=== PATIENT | female | born 1945 | race Caucasian/White ===

== ENCOUNTER 2019-09-21 15:05 | Inpatient (IN) | payer MEDICARE ==
[~2019-09-21] VITALS: Ht 167.6 cm; Wt 53.2 kg
[2019-09-21] MEDS ORDERED: IOHEXOL-350 50ML VIAL IV ONE (15:09)
[2019-09-21] MEDS ORDERED: LIDOCAINE HCL 2% 20ML ONE (15:09)
[2019-09-21] MEDS ORDERED: DOPAMINE HCL 400 MG/D5%-WATER 0 ML IV ONE (15:09)
[2019-09-21] MEDS ORDERED: LIDOCAINE PF 2% 5ML ABBOJECT ONE (15:09)
[2019-09-21] MEDS ORDERED: BIVALIRUDIN 250 MG/VIAL IV ONE (15:09)
[2019-09-21] MEDS ORDERED: ATROPINE SULFATE 0.1 MG/ML 10 ML SYG IVP ONE (15:09)
[2019-09-21] MEDS ORDERED: IOHEXOL 350 MG/ML 100ML INFUS..BTL IV ONE (15:09)
[2019-09-21] MEDS ORDERED: NITROGLYCERIN 2 MG/VIAL VIAL IV ONE (15:09)
[2019-09-21] MEDS ORDERED: METOPROLOL TARTRATE 1 MG/ML 5ML VIAL IV ONE (15:28)
[2019-09-21] MEDS ORDERED: CEFTRIAXONE SODIUM 2 GM VIAL ONE (16:40)
[2019-09-21] MEDS ORDERED: SODIUM CHLORIDE 0.9% 50 ML IV ONE (16:41)
[2019-09-21] MEDS ORDERED: AZITHROMYCIN 500MG+NS 250ML 250 ML IV ONE (17:10)
[2019-09-21] MEDS ORDERED: NITROGLYCERIN 0.4 MG SL TAB SL PRN (17:15)
[2019-09-21] MEDS ORDERED: MORPHINE SULFATE 2 MG/ML 1ML SYG IVP PRN (17:15)
[2019-09-21] MEDS: AZITHROMYCIN 500MG+NS 250ML 250 ML IV SCH (17:15)
[2019-09-21] MEDS: CEFTRIAXONE SODIUM 1 GM IVP SCH (17:15)
[2019-09-21] MEDS ORDERED: ACETAMINOPHEN 325 MG TAB PO PRN ×2 (17:30)
[2019-09-21] MEDS ORDERED: ONDANSETRON HCL 4 MG/2 ML VIAL IVP PRN (17:30)
[2019-09-21] MEDS: LACTATED RINGERS 1000ML 1,000 ML IV SCH (18:15)
[2019-09-21] MEDS ORDERED: ASPIRIN 300 MG SUPPOSITORY PR SCH (20:00)
[2019-09-21] MEDS ORDERED: ASPIRIN 325 MG TABLET ONE (20:07)
[2019-09-21] MEDS ORDERED: ENOXAPARIN SODIUM 100 MG/1 ML SQ ONE (20:07)
[2019-09-21] MEDS: ENOXAPARIN SODIUM 60 MG/0.6 ML SQ SCH (21:00)
[2019-09-21] MEDS: METOPROLOL TARTRATE 25 MG TAB PO SCH (21:00)
[2019-09-21] MEDS ORDERED: HEPARIN 25000 UNITS/250 ML D5W 250 ML IV SCH (21:30)
[2019-09-21] MEDS ORDERED: SIMVASTATIN 10 MG TABLET ONE (22:05)
[2019-09-21] MEDS ORDERED: FAMOTIDINE/PF 20 MG/2 ML VIAL IV ONE (22:05)
[2019-09-21] MEDS ORDERED: LACTATED RINGERS 1000ML 1,000 ML IV ONE (22:05)
[2019-09-22] MEDS ORDERED: METOPROLOL TARTRATE 25 MG TAB ONE ×2 (03:28→15:11)
[2019-09-22] MEDS: ASPIRIN 81MG TAB.CHEW PO SCH (09:00)
[2019-09-22] MEDS: FAMOTIDINE/PF 20 MG/2 ML VIAL IV SCH (09:00)
[2019-09-22] MEDS: METOPROLOL TARTRATE 25 MG TAB PO SCH ×2 (09:00→21:00)
[2019-09-22] MEDS: ENOXAPARIN SODIUM 60 MG/0.6 ML SQ SCH ×2 (09:00→21:00)
[2019-09-22] MEDS ORDERED: ENOXAPARIN SODIUM 30 MG/0.3 ML SQ SCH (09:00)
[2019-09-22] MEDS ORDERED: ENOXAPARIN SODIUM 60 MG/0.6 ML SQ ONE (09:09)
[2019-09-22] MEDS ORDERED: FAMOTIDINE/PF 20 MG/2 ML VIAL IV ONE ×2 (09:09→22:32)
[2019-09-22] MEDS ORDERED: LACTATED RINGERS 1000ML 1,000 ML IV ONE (09:13)
[2019-09-22] MEDS ORDERED: LORAZEPAM 2 MG/ML 1 ML VIAL ONE (11:16)
[2019-09-22] MEDS: LACTATED RINGERS 1000ML 1,000 ML IV SCH (14:15)
--- NOTE | 2019-09-22 14:56 | NUR ---
DCP: HOME TO [facility] spoke to pt's daughter Hanna De La Torre [phone]. Per daughter, family had come down for vacation at [facility] when pt became ill. Prior to this, pt was independent, active, no DME or in home care services. PCP is Dr Morris [phone] or [phone]. Plan is home to [place] when able. Addendum: 09/22/19 at 1459 by BIJU PHILLIP Amended: Links added.
[2019-09-22] MEDS ORDERED: AZITHROMYCIN 500MG+NS 250ML 250 ML IV ONE (15:11)
[2019-09-22] MEDS ORDERED: CEFTRIAXONE SODIUM 1 GM ONE (15:59)
[2019-09-22] MEDS ORDERED: SODIUM CHLORIDE 0.9% 50 ML IV ONE (16:00)
[2019-09-22] MEDS: AZITHROMYCIN 500MG+NS 250ML 250 ML IV SCH (17:15)
[2019-09-22] MEDS: CEFTRIAXONE SODIUM 1 GM IVP SCH (17:15)
[2019-09-22] MEDS ORDERED: ASPIRIN 81MG TAB.CHEW ONE (22:31)
[2019-09-22] MEDS ORDERED: SIMVASTATIN 10 MG TABLET ONE (22:32)
[2019-09-23] VITALS (9 sets, daily range): BP systolic 78–148; BP diastolic 40–86; PULSE 79–101; RESP 18–22; TEMP 98.2–98.8
[2019-09-23] MEDS: ALPRAZOLAM 0.25 MG TABLET PO PRN (08:01)
[2019-09-23] MEDS: ENOXAPARIN SODIUM 60 MG/0.6 ML SQ SCH ×2 (08:03→21:20)
[2019-09-23] MEDS: METOPROLOL TARTRATE 25 MG TAB PO SCH (08:04)
[2019-09-23] MEDS: ASPIRIN 81MG TAB.CHEW PO SCH (08:04)
[2019-09-23] MEDS: FAMOTIDINE/PF 20 MG/2 ML VIAL IV SCH (09:00)
--- NOTE | 2019-09-23 13:30 | NUR ---
Called lab for covid results. Covid swab was collected on 09/22 results still pending. Per lab should come back today or 09/23. Attempted to call MD with update of covid test and no answer.
--- NOTE | 2019-09-23 16:18 | NUR ---
Covid test negative. Informed primary MD of negative results and was given order for RT home oxygen evaluation. Order entered. Per MD if pt does need home oxygen put in order for case management to arrange for home oxygen.
[2019-09-23] MEDS: AZITHROMYCIN 500MG+NS 250ML 250 ML IV SCH (17:21)
[2019-09-23] MEDS: CEFTRIAXONE SODIUM 1 GM IVP SCH (17:21)
--- NOTE | 2019-09-23 18:14 | NUR ---
Unknown reason as to why this patient has a rodrigues. Will f/u with Addendum: 09/23/19 at 1816 by SHIRIN SHELBY RN RN Amended: Links added.
[2019-09-23] MEDS ORDERED: METHYLPREDNISOLONE SOD SUCC 40MG/ML 1ML IVP SCH (21:00)
[2019-09-23] MEDS: METOPROLOL SUCCINATE 50 MG TAB.SR.24H PO SCH (21:15)
[2019-09-24] VITALS (9 sets, daily range): BP systolic 109–159; BP diastolic 51–87; PULSE 44–89; RESP 18–22; TEMP 97.3–98.8
--- NOTE | 2019-09-24 07:30 | NUR ---
Upon entering room. Pt reports he was in the bathroom, and patient got up out of the bed. There was BM on the floor, patient, and the bed. assisted cleaning the patient. Pt was put in the shower with assistance of . Changed the bedding. Placed bed alarm on. Pt tolerated well.
[2019-09-24] MEDS ORDERED: DEXAMETHASONE SOD PHOSPHATE 4 MG/ML 1ML VIAL IVP SCH (09:00)
[2019-09-24] MEDS: LOSARTAN 50 MG TABLET PO SCH (10:34)
[2019-09-24] MEDS: POTASSIUM CHLORIDE 20 MEQ ERTAB PO SCH (10:35)
[2019-09-24] MEDS: ASPIRIN 81MG TAB.CHEW PO SCH (10:35)
[2019-09-24] MEDS: ENOXAPARIN SODIUM 60 MG/0.6 ML SQ SCH ×2 (10:35→21:03)
[2019-09-24] MEDS: FAMOTIDINE/PF 20 MG/2 ML VIAL IV SCH (10:35)
--- NOTE | 2019-09-24 11:19 | NUR ---
Called Dr. Hobbs cardiology workers compensation paralegal at [phone] to inform pt family inquiring about [facility] for discharge. did not answer and voicemail not set up. Will return call.
--- NOTE | 2019-09-24 11:35 | NUR ---
Removed rodrigues. Removed 8cc out of balloon. Pt. tolerated well. No s/s of distress noted. Will monitor for post void
--- NOTE | 2019-09-24 12:30 | NUR ---
Pt assisted patient to bathroom. Informed pt voided and had a BM. Unable to get obtain the amount of urine voided. Will continue to monitor.
[2019-09-24] MEDS ORDERED: HALOPERIDOL DECANOATE 100 MG/ML ML IM SCH (15:15)
[2019-09-24] MEDS: ALPRAZOLAM 0.25 MG TABLET PO PRN (15:53)
[2019-09-24] MEDS ORDERED: HALOPERIDOL LACTATE 5 MG/ML VIAL IM SCH (17:00)
[2019-09-24] MEDS: AZITHROMYCIN 500MG+NS 250ML 250 ML IV SCH (17:26)
[2019-09-24] MEDS: CEFTRIAXONE SODIUM 1 GM IVP SCH (17:26)
[2019-09-24] MEDS: METOPROLOL SUCCINATE 50 MG TAB.SR.24H PO SCH (21:00)
[2019-09-25] VITALS (8 sets, daily range): BP systolic 93–135; BP diastolic 59–75; PULSE 63–107; RESP 2–20; TEMP 97.2–98.4
--- NOTE | 2019-09-25 00:11 | NUR ---
PREVIOUS DOCUMENTATION MADE IN ERROR. DISREGARD Addendum: 09/25/19 at 0011 by ZELDA BLAND RN RN Amended: Links added.
--- NOTE | 2019-09-25 04:59 | NUR ---
PT HAS BEEN SLEEPING PEACEFULLY. NO COMPLAINTS OF PAIN OR DISCOMFORT REPORTED BY HER WHO IS AT HER BEDSIDE. PT IS NONVERBAL. WILL CONTINUE TO MONITOR
[2019-09-25] MEDS: LOSARTAN 50 MG TABLET PO SCH (09:14)
[2019-09-25] MEDS: FAMOTIDINE/PF 20 MG/2 ML VIAL IV SCH (09:14)
[2019-09-25] MEDS: ENOXAPARIN SODIUM 60 MG/0.6 ML SQ SCH ×2 (09:15→20:50)
[2019-09-25] MEDS: ASPIRIN 81MG TAB.CHEW PO SCH (09:15)
[2019-09-25] MEDS: POTASSIUM CHLORIDE 20 MEQ ERTAB PO SCH (09:19)
[2019-09-25] MEDS: CEFTRIAXONE SODIUM 1 GM IVP SCH (18:36)
[2019-09-25] MEDS: AZITHROMYCIN 500MG+NS 250ML 250 ML IV SCH (18:36)
[2019-09-25] MEDS: METOPROLOL SUCCINATE 50 MG TAB.SR.24H PO SCH (20:48)
--- NOTE | 2019-09-26 02:22 | NUR ---
PT IS RESTING IN BED. PT'S REPORTS SHE IS IN NO PAIN. NO CONCERNS OR COMPLAINTS. WILL CONTINUE TO MONITOR
[2019-09-26 03:00] VITALS: BP 120/75; PULSE 58; RESP 20; TEMP 97.7
--- NOTE | 2019-09-26 06:47 | NUR ---
Patient's called staff, that had tripped over him on the sofa, denies any injuries on him/her and remains hemodynamically stable plus neuro status remains at baseline. Patient found ambulating with towards restroom in no distress, no visible injuries noted, patient bearing weight equally with full ROM on extremities. House informed
[2019-09-26 08:00] VITALS: BP 111/68; PULSE 59; RESP 20; TEMP 98.1
[2019-09-26 08:12] VITALS: PULSE 96; RESP 16
[2019-09-26] MEDS: LOSARTAN 50 MG TABLET PO SCH (08:30)
[2019-09-26] MEDS: ASPIRIN 81MG TAB.CHEW PO SCH (08:30)
[2019-09-26] MEDS: FAMOTIDINE/PF 20 MG/2 ML VIAL IV SCH (08:30)
[2019-09-26] MEDS: ENOXAPARIN SODIUM 60 MG/0.6 ML SQ SCH (08:31)
[2019-09-26] MEDS: POTASSIUM CHLORIDE 20 MEQ ERTAB PO SCH (08:38)
[2019-09-26 11:20] VITALS: PULSE 106; PULSE 117; RESP 14; RESP 18
--- NOTE | 2019-09-26 13:11 | NUR ---
Discharge instructions/information given to patient's spouse Cristiano. Teach back method used to educate spouse on pt's diet, s/s to monitor for, when to call md, new meds prescribed, and f/u appointments. Patient is negative for covid but spouse was instructed for patient to continue to wear mask, social distance, and practice excellent hand hygiene. PIV removed. Tip was intact. Tele pack removed. All belongings were packed by .
--- NOTE | 2019-09-26 14:14 | NUR ---
CALLED IN PRESCRIPTION FOR APIXABAN 2.5MG PO BID X [address] HENNESSY TO [facility] IN [facility]. SPOKE WITH YASH AT 1412.
--- NOTE | 2019-09-26 14:22 | NUR ---
CALLED BACK [facility] TO CANCEL PRESCRIPTION FOR APIXABAN ORDERED BY DR. HENNESSY. SPOKE WITH YASH.
== END 2019-09-26 14:10 | disposition home or self-care (01) | DRG 280 ==
LOC: EDH 15:05 → EDHIP 15:06 → 2AH 09-23 00:43
PROVIDERS: ADMIT Internal Medicine; ATTEND Internal Medicine
DX: I21.4 Non-ST elevation (NSTEMI) myocardial infarction (principal); J96.01 Acute respiratory failure with hypoxia; J18.9 Pneumonia, unspecified organism; I51.81 Takotsubo syndrome; R47.01 Aphasia; E78.5 Hyperlipidemia, unspecified; F03.90 Unspecified dementia, unspecified severity, without behavioral disturbance, psychotic disturbance, mood disturbance, and anxiety; F32.9 Major depressive disorder, single episode, unspecified; F41.9 Anxiety disorder, unspecified; H91.90 Unspecified hearing loss, unspecified ear; Z20.828 Contact with and (suspected) exposure to other viral communicable diseases; R26.2 Difficulty in walking, not elsewhere classified; Z79.899 Other long term (current) drug therapy